=== PATIENT | female | born 1985 | race Caucasian/White ===

== ENCOUNTER → 2019-11-21 15:36 | Outpatient (BNVA) | payer BC, SELFPAY | PROVIDERS: Family Provider Family Medicine; PCP Family Medicine; Visit Provider Nurse Practitioner Family | DX: N30.20 Other chronic cystitis without hematuria (principal) | CPT/HCPCS: 81001 ==

== ENCOUNTER 2020-05-17 13:49 | Outpatient (CLI) | payer BC, SELFPAY ==
--- NOTE | 2020-05-17 13:58 | MR_ITS ---
WS: [id number] MRI HEAD WITH CONTRAST TECHNIQUE: Sagittal T1, T2 axial, T2 axial FLAIR, axial susceptibility weighted imaging, axial diffus ion weighted images, and coronal T2 images were obtained. Pre and post-T1 axial and post T1 coronal i mages. ADC and FSPGR images. CLINICAL INFORMATION: FONTENOT/MIGRAINE/DECREASED VISION COMPARISON: None. FINDINGS: No evidence of restricted diffusion to suggest acute ischemia. Ventricular system and basal cisterns are patent. No suspicious intracranial signal abnormalities. Normal becerra-white differentiation. The p ons and brainstem normal in appearance. Normal vascular flow voids at the skull base. Paranasal sinus es and mastoid air cells well aerated. No hemosiderin on the susceptibly weighted images. Normal optic chiasm and pituitary infundibulum. Te mporal lobes and hippocampal formations are normal in appearance. No signal abnormalities in the raad al temporal lobes. No abnormal gadolinium enhancement. Normal visualized dural venous sinuses. MR/MR head wo/w con [id number] IMPRESSION: 1. No evidence of restricted diffusion to suggest acute ischemia. 2. No suspicious intracranial signal abnormalities. Normal corpus callosum. 3. Temporal lobes and hippocampal formations are normal in appearance. 4. No abnormal gadolinium enhancement.
== END 2020-05-17 13:50 | disposition home or self-care (01) ==
PROVIDERS: Family Provider Family Medicine; PCP Family Medicine; Visit Provider Nurse Practitioner Family
DX: G43.909 Migraine, unspecified, not intractable, without status migrainosus (principal); H54.7 Unspecified visual loss
CPT/HCPCS: 70553; A9579

== ENCOUNTER → 2020-09-13 08:44 | Outpatient (BNVA) | payer BC, SELFPAY | PROVIDERS: Family Provider Family Medicine; PCP Family Medicine; Referring Provider Nurse Practitioner Family; Visit Provider Specialist | DX: G43.711 Chronic migraine without aura, intractable, with status migrainosus (principal) | CPT/HCPCS: 99204 ==

== ENCOUNTER → 2020-11-20 13:08 | Outpatient (BNVA) | payer BC, SELFPAY | PROVIDERS: Family Provider Family Medicine; PCP Nurse Practitioner Family; Visit Provider Urology | DX: N30.20 Other chronic cystitis without hematuria (principal) | CPT/HCPCS: 81003 ==

== ENCOUNTER → 2021-01-17 12:11 | Outpatient (BNVA) | payer BC, SELFPAY | PROVIDERS: Family Provider Family Medicine; PCP Nurse Practitioner Family; Visit Provider Specialist | DX: G43.711 Chronic migraine without aura, intractable, with status migrainosus (principal) | CPT/HCPCS: 99213; 99214 ==

== ENCOUNTER 2021-01-17 14:11 | Outpatient (CLI) | payer BC, SELFPAY ==
--- NOTE | 2021-01-17 14:27 | XR_ITS ---
WS: [id number] XR wrist RT min 3V* [id number] REASON FOR EXAM: RIGHT WRIST PAIN FINDINGS: The radial styloid is somewhat prominent. There may be mild narrowing of the radial navicular joint. No subchondral sclerosis or degenerative cystic changes identified. The remainder of the bone and joint structures of the right wrist are unremarkable. XR/XR wrist RT min 3V* [id number] IMPRESSION: There is anatomy for impingement at the radial navicular joint however there ar e no definite findings findings of arthropathy except possible mild narrowing o f the radial navicular joint. Most likely normal study.
--- NOTE | 2021-01-17 14:29 | XR_ITS ---
WS: [id number] XR hand RT min 3V* [id number] REASON FOR EXAM: right hand pain FINDINGS: Joint spaces of the right hand are intact. No focal bony abnormality. No soft tissue abnormality. XR/XR hand RT min 3V* [id number] IMPRESSION: No significant abnormality of the right hand identified.
== END 2021-01-17 14:12 | disposition home or self-care (01) ==
PROVIDERS: PCP Nurse Practitioner Family; Visit Provider Nurse Practitioner Family
DX: M25.531 Pain in right wrist (principal); M79.641 Pain in right hand; W19.XXXA Unspecified fall, initial encounter
CPT/HCPCS: 73110; 73130

== ENCOUNTER → 2021-05-22 14:41 | Outpatient (BNVA) | payer BC, SELFPAY | PROVIDERS: PCP Nurse Practitioner Family; Visit Provider Specialist | DX: G43.711 Chronic migraine without aura, intractable, with status migrainosus (principal); F40.231 Fear of injections and transfusions | CPT/HCPCS: 99214 ==

== ENCOUNTER → 2021-07-11 14:10 | Outpatient (BNVA) | payer BC, SELFPAY | PROVIDERS: PCP Nurse Practitioner Family; Visit Provider Specialist | DX: G43.709 Chronic migraine without aura, not intractable, without status migrainosus (principal); R11.2 Nausea with vomiting, unspecified | CPT/HCPCS: 64615; 96372; J0585; J1885; J2405 ==

== ENCOUNTER → 2021-09-04 08:06 | Outpatient (BNVA) | payer BC, SELFPAY | PROVIDERS: PCP Nurse Practitioner Family; Visit Provider Specialist | DX: G43.711 Chronic migraine without aura, intractable, with status migrainosus (principal) | CPT/HCPCS: 96374; 96375; 96376; 99214 ==

== ENCOUNTER → 2021-10-10 12:57 | Outpatient (BNVA) | payer BC, SELFPAY | PROVIDERS: PCP Nurse Practitioner Family; Visit Provider Specialist | DX: G43.711 Chronic migraine without aura, intractable, with status migrainosus (principal) | CPT/HCPCS: 64615; J0585 ==

== ENCOUNTER 2023-08-05 11:27 | Outpatient (CLI) | payer MEDICAID, SELFPAY ==
--- NOTE | 2023-08-05 11:39 | US_ITS ---
WS: [id number] ULTRASOUND THYROID TECHNIQUE: Ultrasound of the thyroid. CLINICAL INFORMATION: ACQUIRED HYPOTHYROIDSIM COMPARISON: None. FINDINGS: Thyroid: Right and left thyroid lobes are normal in size with diffuse heterogeneous thyroid echotextu re with hypoechoic micronodularity. No dominant nodules. Right thyroid lobe: 4.8 cm x 1.8 cm x 1.9 cm Left thyroid lobe: 4.6 cm x 1.6 cm x 1.6 cm. Isthmus: 0.2 mm. Cervical lymphadenopathy: None. IMPRESSION: 1. Diffuse heterogeneous thyroid echotexture with micronodularity can be seen with Shahriar's thyro iditis. Recommend correlation with thyroid function studies. 2. No dominant nodules.
== END 2023-08-05 11:28 | disposition home or self-care (01) ==
LOC: RAD 11:33
PROVIDERS: PCP Nurse Practitioner Family; Visit Provider Nurse Practitioner Family
DX: E03.9 Hypothyroidism, unspecified (principal)
CPT/HCPCS: 76536

== ENCOUNTER → 2024-06-30 12:24 | Outpatient (BNVA) | payer MEDICARE, MEDICAID, SELFPAY | PROVIDERS: PCP Nurse Practitioner Family; Visit Provider Specialist | DX: G43.711 Chronic migraine without aura, intractable, with status migrainosus (principal) | CPT/HCPCS: 64615; J0585 ==

== ENCOUNTER → 2024-10-07 12:45 | Outpatient (BNVA) | payer MEDICARE, MEDICAID, SELFPAY | PROVIDERS: PCP Nurse Practitioner Family; Visit Provider Specialist | DX: G43.711 Chronic migraine without aura, intractable, with status migrainosus (principal); M79.7 Fibromyalgia; F44.5 Conversion disorder with seizures or convulsions; F32.A Depression, unspecified | CPT/HCPCS: 64615; 99212; J0585 ==

== ENCOUNTER → 2024-12-30 13:03 | Outpatient (BNVA) | payer MEDICARE, MEDICAID, SELFPAY | PROVIDERS: PCP Nurse Practitioner Family; Visit Provider Specialist | DX: G43.711 Chronic migraine without aura, intractable, with status migrainosus (principal); R55 Syncope and collapse; F44.5 Conversion disorder with seizures or convulsions | CPT/HCPCS: 64615; 99212; J0585 ==

== ENCOUNTER → 2025-03-21 07:45 | Outpatient (BNVA) | payer MEDICARE, MEDICAID, SELFPAY | PROVIDERS: PCP Nurse Practitioner Family; Referring Provider Specialist; Visit Provider Specialist | DX: R56.9 Unspecified convulsions (principal) | CPT/HCPCS: 95819 ==

== ENCOUNTER → 2025-03-31 12:39 | Outpatient (BNVA) | payer MEDICARE, MEDICAID, SELFPAY | PROVIDERS: PCP Nurse Practitioner Family; Visit Provider Specialist | DX: G43.711 Chronic migraine without aura, intractable, with status migrainosus (principal) | CPT/HCPCS: 64615; 99214; J0585; J9999 ==

== ENCOUNTER → 2025-07-06 11:47 | Outpatient (BNVA) | payer MEDICARE, MEDICAID, SELFPAY | PROVIDERS: PCP Nurse Practitioner Family; Visit Provider Specialist | DX: G43.711 Chronic migraine without aura, intractable, with status migrainosus (principal); R11.2 Nausea with vomiting, unspecified | CPT/HCPCS: 64615; 96372; 99213; J0585; J2405; J9999 ==

== ENCOUNTER → 2025-10-12 10:54 | Outpatient (BNVA) | payer MEDICARE, MEDICAID, SELFPAY | PROVIDERS: PCP Nurse Practitioner Family; Visit Provider Specialist | DX: G43.711 Chronic migraine without aura, intractable, with status migrainosus (principal) | CPT/HCPCS: 64615; J0585; J9999 ==